=== PATIENT | male | born 1995 | race Caucasian/White ===

== ENCOUNTER → 2017-12-21 | Outpatient (CLI) | payer OTHER ==
[~2017-12-21] MED LIST: HYDR-385 PO
--- NOTE | 2017-12-21 15:07 | RADIOLOGY IMAGING REPORT ---
FACILITY: [facility] - [place] PATIENT NAME: Victor M Moody : 1995 MR: [id number] V: [id number] EXAM DATE: ORDERING PHYSICIAN: MARISA SHEFFIELD TECHNOLOGIST: Location: [facility] [place] Patient: Victor M Moody : 1995 Visit/Account:[id number] Date of Sevice: 12/21/2017 Technique: SHOULDER MIN 2 VIEWS RIGHT HISTORY: fall Comparison studies: None FINDINGS: There is no acute fracture. The alignment of the right shoulder is maintained. Soft tissu es are unremarkable. IMPRESSION: 1. No acute osseous process. Report Dictated By: Gerhard Shore DO at 12/21/2017 3:00 PM Report E-Signed By: Gerhard Shore DO at 12/21/2017 3:02 PM WSN:[email or web address]
== END ==
LOC: RAD 14:27
PROVIDERS: ATTEND Nurse Practitioner Family
DX: S49.91XA Unspecified injury of right shoulder and upper arm, initial encounter (principal); M25.511 Pain in right shoulder; R68.89 Other general symptoms and signs; W19.XXXA Unspecified fall, initial encounter

== ENCOUNTER → 2018-12-30 | Outpatient (CLI) | payer OTHER ==
--- NOTE | 2018-12-30 17:02 | RADIOLOGY IMAGING REPORT ---
[place] [facility] [place]IENT NAME: Victor M Moody : 1995 MR: [id number] V: [id number] EXAM DATE: ORDERING PHYSICIAN: BIENVENIDO BENAVIDES TECHNOLOGIST: Location: Patient: Victor M Moody : 1995 Visit/Account:[id number] Date of Sevice: 12/30/2018 Technique: XR WRIST 3 OR MORE VIEWS RT HISTORY: Fall Comparison studies: None FINDINGS: Noted is an acute, nondisplaced fracture involving the scaphoid waist. The remaining align ment of the right wrist is preserved. Soft tissue swelling surrounds the fracture site. IMPRESSION: 1. Acute, nondisplaced fracture involving the scaphoid waist. Report Dictated By: Gerhard Shore DO at 12/30/2018 4:54 PM Report E-Signed By: Gerhard Shore DO at 12/30/2018 4:59 PM WSN:[email or web address]
== END ==
LOC: RAD 16:20
PROVIDERS: ATTEND Emergency Medicine Sports Medicine
DX: S62.001A Unspecified fracture of navicular [scaphoid] bone of right wrist, initial encounter for closed fracture (principal); V80.010A Animal-rider injured by fall from or being thrown from horse in noncollision accident, initial encounter

== ENCOUNTER → 2019-01-19 | Outpatient (CLI) | payer OTHER ==
--- NOTE | 2019-01-19 10:08 | RADIOLOGY IMAGING REPORT ---
FACILITY: [facility] PATIENT NAME: Victor M Moody : 1995 MR: [id number] V: [id number] EXAM DATE: [id number] ORDERING PHYSICIAN: BIENVENIDO BENAVIDES TECHNOLOGIST: Location: [facility] [place] Patient: Victor M Moody : 1995 Visit/Account:[id number] Date of Sevice: 01/19/2019 Exam type: XR WRIST 3 OR MORE VIEWS RT History: Scaphoid fracture follow-up Comparison: December 30, 2018. Findings: Four views are submitted. Again noted is the nondisplaced fracture involving the scaphoid waist that appears relatively unchanged in alignment. No bridging callus is identified.. There is less soft t issue swelling present IMPRESSION: 1. Nondisplaced fracture involving the scaphoid waist appears relatively unchanged in alignment. No bridging callus is identified Report Dictated By: Carol Ann Dimas MD at 01/19/2019 9:57 AM Report E-Signed By: Carol Ann Dimas MD at 01/19/2019 10:03 AM WSN:[email or web address]
== END ==
LOC: RAD 09:18
PROVIDERS: ATTEND Emergency Medicine Sports Medicine
DX: S62.001D Unspecified fracture of navicular [scaphoid] bone of right wrist, subsequent encounter for fracture with routine healing (principal)

== ENCOUNTER → 2019-01-20 | Outpatient (CLI) | payer OTHER ==
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
== END ==
LOC: RAD 13:51
PROVIDERS: ATTEND Emergency Medicine Sports Medicine
DX: S92.912A Unspecified fracture of left toe(s), initial encounter for closed fracture (principal); S92.325A Nondisplaced fracture of second metatarsal bone, left foot, initial encounter for closed fracture; S92.335A Nondisplaced fracture of third metatarsal bone, left foot, initial encounter for closed fracture; S92.345A Nondisplaced fracture of fourth metatarsal bone, left foot, initial encounter for closed fracture; W55.19XA Other contact with horse, initial encounter

== ENCOUNTER → 2019-02-09 | Outpatient (CLI) | payer OTHER ==
--- NOTE | 2019-02-09 12:32 | RADIOLOGY IMAGING REPORT ---
FACILITY: [facility] - [place] PATIENT NAME: Victor M Moody : 1995 MR: [id number] V: [id number] EXAM DATE: ORDERING PHYSICIAN: BIENVENIDO BENAVIDES TECHNOLOGIST: Location: [facility] Patient: Victor M Moody : 1995 Visit/Account:[id number] Date of Sevice: 02/09/2019 XR WRIST 3 OR MORE VIEWS RT History: Known right navicular fracture. Comparison study: January 19, 2019. Findings: Comparison the previous study shows again a right navicular waist fracture with no signifi cant distraction of the fracture fragments. The density of the proximal and distal portions of the s caphoid bone are similar to that noted on the prior exam. No additional fractures are seen. IMPRESSION: Stable appearance of right navicular waist fracture. No findings of increased distractio n or sclerosis of the proximal fracture fragment. Correlation clinical exam is recommended. Report Dictated By: Barry Lisa MD at 02/09/2019 12:26 PM Report E-Signed By: Barry Lisa MD at 02/09/2019 12:27 PM WSN:[email or web address]
--- NOTE | 2019-02-09 12:44 | RADIOLOGY IMAGING REPORT ---
FACILITY: [facility] [place] PATIENT NAME: Victor M Moody : 1995 MR: [id number] V: [id number] EXAM DATE: ORDERING PHYSICIAN: BIENVENIDO BENAVIDES TECHNOLOGIST: Location: [facility] Patient: Victor M Moody : 1995 Visit/Account:[id number] Date of Sevice: 02/09/2019 FOOT 3 VIEW LEFT History: Left foot fractures. Comparison study: January 20, 2019. Findings: Again noted are oblique comminuted fractures through the heads of the second, third and fo urth metatarsals with mild distraction of the fracture fragments. There is an oblique fracture through the base of the proximal phalanx of the left first digit. There has been repair of a bimalleolar left ankle fracture in the past. IMPRESSION: 1. Fractures involving the heads of the second, third and fourth metatarsals not significantly diffe rent when compared to the prior exam. 2. Oblique fracture through the base of the proximal phalanx of the left first toe without change. 3. Postoperative changes left ankle. Report Dictated By: Barry Lisa MD at 02/09/2019 12:37 PM Report E-Signed By: Barry Lisa MD at 02/09/2019 12:38 PM WSN:[email or web address]
== END ==
LOC: RAD 11:06
PROVIDERS: ATTEND Emergency Medicine Sports Medicine
DX: S62.001A Unspecified fracture of navicular [scaphoid] bone of right wrist, initial encounter for closed fracture (principal); S92.302A Fracture of unspecified metatarsal bone(s), left foot, initial encounter for closed fracture; Z98.890 Other specified postprocedural states

== ENCOUNTER → 2019-03-02 | Outpatient (CLI) | payer OTHER ==
--- NOTE | 2019-03-02 09:32 | RADIOLOGY IMAGING REPORT ---
FACILITY: [facility] - [place] PATIENT NAME: Victor M Moody : 1995 MR: [id number] V: [id number] EXAM DATE: ORDERING PHYSICIAN: BIENVENIDO BENAVIDES TECHNOLOGIST: Location: [facility] Patient: Victor M Moody : 1995 Visit/Account:[id number] Date of Sevice: 03/02/2019 Right wrist, four views. HISTORY: Follow-up fracture. COMPARISON: 02/09/2019. Mild soft tissue swelling is present in the dorsum of the wrist. Alignment and apposition of navicul ar fracture fragments are unchanged. The fracture line is less distinct. No surrounding callus. No areas of abnormal sclerosis are present. Carpal alignment is otherwise unremarkable. IMPRESSION: Healing navicular fracture. Report Dictated By: Jorge Blount MD at 03/02/2019 9:25 AM Report E-Signed By: Jorge Blount MD at 03/02/2019 9:28 AM WSN:[email or web address]
--- NOTE | 2019-03-02 09:35 | RADIOLOGY IMAGING REPORT ---
FACILITY: [facility] [place] PATIENT NAME: Victor M Moody : 1995 MR: [id number] V: [id number] EXAM DATE: ORDERING PHYSICIAN: BIENVENIDO BENAVIDES TECHNOLOGIST: Location: [facility] [place] Patient: Victor M Moody : 1995 Visit/Account:[id number] Date of Sevice: 03/02/2019 Left foot, three views. HISTORY: Follow-up fracture. COMPARISON: 02/09/2019. Alignment and apposition of fracture fragments in the second, third, and fourth metatarsal heads, and the base of the first proximal phalanx are unchanged. The fracture lines are less distinct. No sig nificant surrounding callus. Metal hardware is present in the distal fibula and tibia. The bones, j oints, and soft tissues are otherwise unremarkable. IMPRESSION: Healing fractures of the second through fourth metatarsals, and the first proximal phalanx. Report Dictated By: Jorge Blount MD at 03/02/2019 9:28 AM Report E-Signed By: Jorge Blount MD at 03/02/2019 9:31 AM WSN:[email or web address]
== END ==
LOC: RAD 08:57
PROVIDERS: ATTEND Emergency Medicine Sports Medicine
DX: S62.001D Unspecified fracture of navicular [scaphoid] bone of right wrist, subsequent encounter for fracture with routine healing (principal); S92.902D Unspecified fracture of left foot, subsequent encounter for fracture with routine healing